=== PATIENT | male | born 2000 | race Two or more races ===

== ENCOUNTER 2023-11-16 17:31 | Emergency (ER) | payer OTHER, MEDICAID ==
[~2023-11-16] VITALS: Ht 170.2 cm; Wt 100.6 kg
[2023-11-16] MEDS ORDERED: PRED20TA2 PO (20:21)
[2023-11-16] MEDS ORDERED: AZIT-43 PO (20:21)
[2023-11-16] MEDS: cefTRIAXone SOD 1,000 MG VL IM ONE (20:59)
[2023-11-16] MEDS: methylPREDNISolone SOD SUCC 125 MG/2 ML VL IM ONE (21:00)
[2023-11-16 21:24] VITALS: BP 116/78; PULSE 78; RESP 20; TEMP 98.7; O2SAT 97
== END 2023-11-16 21:30 | disposition home or self-care (01) ==
LOC: ER 17:31
DX: J20.9 Acute bronchitis, unspecified (principal); Z98.890 Other specified postprocedural states
CPT/HCPCS: 96372; 99284; J0696; J2930